=== PATIENT | female | born 1950 | race Caucasian/White ===

== ENCOUNTER 2018-03-01 13:15 | Outpatient (CLI) | payer MEDICARE, OTHER | END 2018-03-01 13:16 | disposition home or self-care (01) | LOC: SC 13:15 | PROVIDERS: ATTEND Internal Medicine Pulmonary Disease | DX: G47.33 Obstructive sleep apnea (adult) (pediatric) (principal) | CPT/HCPCS: 99213; G0463; 99212 ==

== ENCOUNTER 2018-05-03 13:25 | Outpatient (CLI) | payer MEDICARE, OTHER | END 2018-05-03 13:26 | disposition home or self-care (01) | LOC: SC 13:25 | PROVIDERS: ATTEND Internal Medicine Pulmonary Disease | DX: G47.33 Obstructive sleep apnea (adult) (pediatric) (principal) | CPT/HCPCS: 99213; G0463; 99212 ==

== ENCOUNTER 2019-06-06 15:20 | Outpatient (CLI) | payer MEDICARE, OTHER ==
--- NOTE | 2019-06-06 16:32 | SLEEP CARE CONSULTATION ---
Information from patient questionnaire entered by Christie Nixon. I have reviewed and concur with the information entered by Christie Nixon. This document represents the service I personally performed and the decisions made by me, Nubia Garner MD, [facility]. History of Present Illness Previous diagnosis: Severe, Obstructive Sleep Apnea-Hypopnea Syndrome AHI: 48.0 Reason for CPAP/BiPAP follow up: annual Equipment type: CPAP Equipment obtained from: [facility] [employer] Mask style: Full face Mask brand: Resmed and Where: 2015 [facility] HPI additional information: HPI: Ms. Granado returned today for follow up of nasal CPAP therapy. She was diagnosed to have severe obstructive sleep apnea-hypopnea syndrome (AHI was 48.0). The patient wears with a ResMed AirFit F-10 full face mask. She reports using the device nightly and all through the night. She complained of no particular problem with the device such as soreness on the face, dry nose, epistaxis, nasal congestion or headache. She thinks that the pressure is comfortable. On the CPAP therapy she notices improvement in her sleep quality, and that she wakes up feeling fresher in the morning and more awake/alert during the day. The [place] Sleepiness Scale score 9. Her notices no snore at all. The average residual AHI is 6.0; and average time in large leak per day is 1.8 hours. The 90th percentile pressure is 9.6 cmH2O. CPAP Compliance Data - Data Reviewed with Patient Average duration of nightly device use: 6h 9m Compliance rate %: 95 Current pressure setting (cmH2O): 8-15 Humidity settin Heated hose settin Subjective Patient concerns: reports: nasal congestion Initial [place] Sleepiness Scale score: 11 Current [place] Sleepiness Scale score: 9 Impression and Plan IMPRESSION: 1. Obstructive Sleep Apnea-Hypopnea Syndrome, severe, with the patient doing well on nasal CPAP therapy. She has excellent compliance and significant clinical improvement. The current pressure appears effective and comfortable. Overall, she is very satisfied with treatment and plans to continue with it long-term. The elevated residual AHI probably is due to the excessive air leak. I recommend a different full face mask. PLAN: 1. Continue with autoCPAP set at 8 - 15 cmH2O. 2. Try to lose weight 3. Try either a ResMed F30 or Respironics DreamWear full face mask. 4. Return in one year for follow up or earlier if there is any problem with the treatment. This visit is time-based and I spent 15 minutes with the patient and more than 50% of the time was spent counseling the patient.
== END 2019-06-06 15:21 | disposition home or self-care (01) ==
LOC: SC 15:20
PROVIDERS: ATTEND Internal Medicine Pulmonary Disease
DX: G47.33 Obstructive sleep apnea (adult) (pediatric) (principal)
CPT/HCPCS: 99213; G0463; 99212

== ENCOUNTER 2021-01-28 15:19 | Outpatient (CLI) | payer MEDICARE, OTHER ==
--- NOTE | 2021-01-28 15:49 | SLEEP CARE CONSULTATION ---
Information from patient questionnaire entered by Hayden Rojas. I have reviewed and concur with the information entered by Hayden Rojas. This document represents the service I personally performed and the decisions made by me, Nubia Garner MD, [facility]. History of Present Illness Service Date and Time: 01/28/2021 1519 Previous diagnosis: Severe, Obstructive Sleep Apnea-Hypopnea Syndrome AHI: 48.0 (in 2016)(70.5 in 2012) Reason for follow up: other (8-month followup) Equipment type: CPAP Equipment obtained from: [employer] Mask style: Full face Prior sleep studies: Yes Year and Where: 2015 [facility] HPI additional information: HPI: Ms. Granado returned today for follow up of nasal CPAP therapy. She was diagnosed to have severe obstructive sleep apnea-hypopnea syndrome. The patient gets her supplies from [employer]. She wears an F10 full face mask. She continues to use the device nightly and all through the night. The compliance report shows usage in 177 nights out of the past 180 nights, averaging 6 hours a night. She complained of no particular problem with the device such as soreness on the face, dry nose, epistaxis, nasal congestion or headache. She thinks that the pressure of 8 - 15 cmH2O is comfortable. On the CPAP therapy she notices improvement in her sleep quality, and that she wakes up feeling fresher in the morning and more awake/alert during the day. The [place] Sleepiness Scale score 7. The average residual AHI is 5.9 (was 6.8); and large air leak, 4 hours a night. The 90th percentile pressure is 10 cmH2O. CPAP Compliance Data - Data Reviewed with Patient Average duration of nightly device use: 6 h 2 min Compliance rate %: 81.7 Current pressure setting (cmH2O): 10-15 Humidity settin Heated hose settin Average residual AHI: 5.9 Average large leak: 4 h 5 min 54 sec Subjective Patient concerns: reports: aerophagia, nasal congestion (probably not the CPAP) Initial [place] Sleepiness Scale score: 14 (in 2011) Current [place] Sleepiness Scale score: 7 Allergies and Home Medications Drug allergies reviewed: Yes Home medication list reviewed: Yes Review of Systems Review of systems same as previous: Yes Physical Exam Vital signs obtained and entered by: KATELYN Height: 5 ft 1 in Weight: 225 lb Body Mass Index: 42.5 BMI Classification: Morbidly Obese Impression and Plan IMPRESSION: 1. Obstructive Sleep Apnea-Hypopnea Syndrome, severe, with the patient continuing to do well on nasal CPAP therapy. She has excellent compliance and significant clinical improvement. The current pressure appears slightly ineffective but comfortable. Overall, she is very satisfied with treatment and plans to continue with it long-term. Because the air leak is high, I will not raise the pressure. Because the CPAP is now older than the useful life of 5 years, I will order the patient a new one and make it an autoCPAP set between 8 - 15 cmH2O. PLAN: 1. Prescription made for an autoCPAP, heated humidifier, and related supplies. 2. Try to lose weight 3. Return for follow up after one month of using the CPAP. Follow up recommended for: Weight management Visit Type: In Office Time Spent with Patient (minutes): 15 Provider Statement: I spent 100% of the Face to Face Visit with the patient with greater than 50% spent counseling the patient and coordination of care.
== END 2021-01-28 15:20 | disposition home or self-care (01) ==
LOC: SC 15:19
PROVIDERS: ATTEND Internal Medicine Pulmonary Disease
DX: G47.33 Obstructive sleep apnea (adult) (pediatric) (principal); E66.01 Morbid (severe) obesity due to excess calories; Z68.41 Body mass index [BMI] 40.0-44.9, adult
CPT/HCPCS: 99212; G0463

== ENCOUNTER 2021-05-13 14:56 | Outpatient (CLI) | payer MEDICARE, OTHER ==
--- NOTE | 2021-05-13 16:46 | SLEEP CARE CONSULTATION ---
Information from patient questionnaire entered by Ana Rosa Andersen. I have reviewed and concur with the information entered by Ana Rosa Andersen. This document represents the service I personally performed and the decisions made by me, Nubia Garner MD, [facility]. History of Present Illness Service Date and Time: 05/13/2021 1456 Previous diagnosis: Severe, Obstructive Sleep Apnea-Hypopnea Syndrome AHI: 48.0 (in 2016)(70.5 in 2012) Reason for follow up: first compliance after device update Equipment type: CPAP Equipment obtained from: [employer] Mask style: Full face Prior sleep studies: Yes [facility] HPI additional information: HPI: Ms. Granado was called today for follow up of nasal CPAP therapy. She was diagnosed to have severe obstructive sleep apnea-hypopnea syndrome (AHI was 48.0) and recently acquired a new device from [employer]. The patient wears with a ResMed AirFit F-10 full face mask. She reports using the device nightly and all through the night. Compliance report shows usage in 30 out of the past 30 nigh ts, averaging 6.7 hours a night. The > 4 hour compliance rate for the past 180 days is 96.7%. She complained of no particular problem with the device such as soreness on the face, dry nose, epistaxis, nasal congestion or headache. She thinks that the pressure of 8 15 is comfortable. On the CPAP therapy she notices improvement in her sleep quality, and that she wakes up feeling fresher in the morning and more awake/alert during the day. The average residual AHI is 9.1 (was 8.1); and average time in large leak per day is 28 minutes (was 1.8 hours). The 90th percentile pressure is 10 cmH2O. CPAP Compliance Data - Data Reviewed with Patient Average duration of nightly device use: 6 hr 44 min Compliance rate %: 96.7 Current pressure setting (cmH2O): 8-15 Humidity settin Heated hose settin Average residual AHI: 9.1 Average large leak: 26 sec Subjective Initial [place] Sleepiness Scale score: 14 (in 2012) Allergies and Home Medications Drug allergies reviewed: Yes Home medication list reviewed: Yes Review of Systems Review of systems same as previous: Yes Physical Exam Height: 5 ft 1 in Impression and Plan IMPRESSION: 1. Obstructive Sleep Apnea-Hypopnea Syndrome, severe, with the patient doing well on nasal CPAP therapy. She continues to have excellent compliance and significant clinical improvement. The current pressure appears slightly ineffective but comfortable. Overall, she is very satisfied with treatment and plans to continue with it long-term. The elevated residual AHI may be due to her pressing the ramp button several times during the night and each time it takes 45 minutes to climb back up. PLAN: 1. AutoCPAP raised to 10 - 15 cmH2O. 2. Change ramp to 6 cmH2O and shorted the ramp time from 45 to 15 minutes 3. Try to lose weight. 4. Return in one year for follow up or earlier if there is any problem with the treatment. Follow up with Sleep Care in: 1 year Visit Type: Telehealth Video Video Type: VSarcelia Patient Location: Home Location of Provider: Office Patient agrees and consents to this telehealth visit type: Yes Patient agrees to have their insurance billed: Yes Time Spent with Patient (minutes): 15 Provider Statement: I spent 100% of the Telehealth Video Call with the patient with greater than 50% spent counseling the patient and coordination of care.
== END 2021-05-13 14:57 | disposition home or self-care (01) ==
LOC: SC 14:56
PROVIDERS: ATTEND Internal Medicine Pulmonary Disease
DX: G47.33 Obstructive sleep apnea (adult) (pediatric) (principal)

== ENCOUNTER 2022-07-25 15:56 | Outpatient (CLI) | payer MEDICARE, OTHER ==
--- NOTE | 2022-07-25 15:21 | SLEEP CARE CONSULTATION ---
Information from patient questionnaire entered by Uday Lopez. I have reviewed and concur with the information entered by Uday Lopez. This document represents the service I personally performed and the decisions made by , Lucy Squires ARNP. History of Present Illness Service Date and Time: 07/25/2022 1500 Previous diagnosis: Severe, Obstructive Sleep Apnea-Hypopnea Syndrome AHI: 48.0 (in 2016)(70.5 in 2011) Reason for follow up: annual (LAST SEEN 05/15) Equipment type: CPAP (DREAMSTATION) Equipment obtained from: [employer] (getting supplies as needed) Mask style: Full face (F10) Backup mask available: Yes (old mask) Last cushion change: 4 days ago Prior sleep studies: Yes Year and Where: 2015 - [facility] HPI additional information: JAM MANSFIELD was diagnosed to have severe, AHI 48.0, obstructive sleep apnea- hypopnea syndrome and returns via telehealth visit today for CPAP therapy annual follow-up. Sleep Study - Results Prior sleep studies: Yes [facility] Compliance Data - Data Reviewed with Patient Average duration of nightly device use: 6 HOURS, 22 MINUTES, 29 SECONDS Compliance rate %: 95.3 (12/24/21 TO 07/25/22; 211/214 days used) Current pressure setting (cmH2O): 8-15 Average residual AHI: 9.9 Central apnea: 1.3 Obstructive apnea: 5.4 Subjective Patient concerns: denies: aerophagia, mask discomfort, air blowing in eyes, mask leak noise, condensation in mask/hose, nasal congestion, dry mouth, nose, throat, epistaxis Observed to snore while using device: No Current pressure setting perceived as: comfortable On therapy, patient: reports: sleeping better, awakening more refreshed, being more awake and alert during the day, more rested overall. denies: drowsiness while driving Initial [place] Sleepiness Scale score: 14 (in 2011) Current [place] Sleepiness Scale score: 5 (/) Allergies and Home Medications Home medication list reviewed: Yes (2 BP meds) Review of Systems Review of systems same as previous: Yes (no changes) Physical Exam Vital signs obtained and entered by: VIA PHONE Height: 5 ft 1 in Weight: 235 lb (pt report) Body Mass Index: 44.4 BMI Classification: Morbidly Obese Impression and Plan 1. Obstructive Sleep Apnea-Hypopnea Syndrome, severe, with good treatment compliance and fair apnea control with elevated residual AHI. On CPAP therapy, the patient has better sleep quality and is more rested overall. Patient has significant improvement of their sleep apnea and are satisfied with current CPAP therapy. Patient does have an elevated residual AHI at 9.9. The patients pressure will be changed to autoCPAP 12-15 cmH20 for elevation of residual AHI. Patient advised to contact me if pressure change is uncomfortable so that it can be adjusted. Goals for apnea control discussed. Patient's apnea severity and rationale for treatment to reduce apnea, improve sleep quality and reduce cardiovascular and cerebrovascular events was reviewed. 2. Obesity, unspecified. Currently patients BMI is 44.4. Obesity increases the risk of apnea, CPAP pressure requirements and overall health risks especially cardiovascular and diabetes. Thus patient is advised to lose weight. * Change auto CPAP pressure to 12-15 cmH2O * Update supplies * Notify me if snoring with mask or feeling that the pressure is too much or too little * Attempt to lose weight * Call this office if any problems using CPAP * Return for follow up in 1 year, or sooner if concerns arise Counseling Topics: Spare mask, Weight loss health impact Visit Type: Telehealth ) Video Type: Alondra Patient Location: Home Location of Provider: Office Patient agrees and consents to this telehealth visit type: Yes Patient agrees to have their insurance billed: Yes Time Spent with Patient (minutes): 14 Provider Statement: I spent 100% of the Telehealth Phone Call with the patient with greater than 50% spent counseling the patient and coordination of care.
== END 2022-07-25 15:57 | disposition home or self-care (01) ==
LOC: SC 15:56
PROVIDERS: ATTEND Nurse Practitioner Family
DX: G47.33 Obstructive sleep apnea (adult) (pediatric) (principal); E66.01 Morbid (severe) obesity due to excess calories; Z68.41 Body mass index [BMI] 40.0-44.9, adult

== ENCOUNTER 2023-07-28 15:40 | Outpatient (CLI) | payer MEDICARE, OTHER ==
--- NOTE | 2023-07-28 15:13 | SLEEP CARE CONSULTATION ---
Information from patient questionnaire entered by Chichi Le. I have reviewed and concur with the information entered by Chichi Le. This document represents the service I personally performed and the decisions made by , Lucy Squires ARNP. History of Present Illness Service Date and Time: 07/28/2023 1500 Previous diagnosis: Severe, Obstructive Sleep Apnea-Hypopnea Syndrome AHI: 48.0 (in 2016)(70.5 in 2011) Reason for follow up: annual (LAST SEEN 06/2022) Equipment type: CPAP (DREAMSTATION 2) Equipment obtained from: [employer] (getting supplies as needed) Mask style: Full face (F10) Backup mask available: Yes Last cushion change: 1 month [facility] HPI additional information: MARILUZ MANSFIELD was diagnosed to have severe, AHI 48, obstructive sleep apnea- hypopnea syndrome and return via telehealth visit today for CPAP therapy annual follow-up. Sleep Study - Results Prior sleep studies: Yes Year and Where: 2015 - [facility] CPAP Compliance Data - Data Reviewed with Patient Average duration of nightly device use: 6 HRS 11 MINS 48 SECS Compliance rate %: 97.2 (01/24/23-07/22/23; 180/180 days used) Current pressure setting (cmH2O): 12-15 (avg 13.9) Average residual AHI: 11.9 Central apnea: 2.3 Obstructive apnea: 5.5 Hypopnea: 4.1 Average large leak: 1 hour 27 mins 46 secs Subjective Patient concerns: reports: air blowing in eyes (only if mask is dislocated, not often). denies: aerophagia, mask discomfort, mask leak noise, condensation in mask/hose, nasal congestion, dry mouth, nose, throat, epistaxis Observed to snore while using device: No Current pressure setting perceived as: comfortable On therapy, patient: reports: sleeping better, awakening more refreshed, being more awake and alert during the day, more rested overall. denies: drowsiness while driving Initial [place] Sleepiness Scale score: 14 (in 2011) Current [place] Sleepiness Scale score: 1 (07/28/23) Allergies and Home Medications Known drug allergies: No Drug allergies reviewed: Yes Home medication list reviewed: Yes (no changes) Review of Systems Review of systems same as previous: Yes (no changes) Physical Exam Vital signs obtained and entered by: CHICHI [place] MA Blood Pressure: 135/80 (PER PT) Height: 5 ft 1 in (PER PT) Weight: 230 lb (PER PT) Weight change since last visit: 5 lb loss Body Mass Index: 43.4 BMI Classification: Morbidly Obese Impression and Plan 1. Obstructive Sleep Apnea-Hypopnea Syndrome, severe, with good treatment compliance and fair apnea control with elevated residual AHI. On CPAP therapy, the patient has better sleep quality and is more rested overall. Patient has an elevated residual AHI with a large leak average of 1 hour 27 minutes. Her hypopneas are elevated. I think the AHI is falsely elevated. Mariluz has significant improvement of her sleep apnea and would like to keep current pressure settings. No changes will be made today. We will followup with her in 1 year. Goals for apnea control discussed. Patient's apnea severity and rationale for treatment to reduce apnea, improve sleep quality and reduce cardiovascular and cerebrovascular events was reviewed. 2. Obesity, unspecified. Currently patients BMI is 43.4. Obesity increases the risk of apnea, CPAP pressure requirements and overall health risks especially cardiovascular and diabetes. Thus patient is advised to lose weight. * Continue auto CPAP pressure at 12-15 cmH2O * Update supply prescription * Notify me if snoring with mask or feeling that the pressure is too much or too little * Attempt to lose weight * Call this office if any problems using CPAP * Return for follow up in 1 year, or sooner if concerns arise Counseling Topics: Spare mask, Weight loss health impact Prescriptions: Device supplies Follow up with Sleep Care in: 1 year Visit Type: Telehealth Phone Video Type: Alondra Patient Location: Home Location of Provider: Office Patient agrees and consents to this telehealth visit type: Yes Patient agrees to have their insurance billed: Yes Time Spent with Patient (minutes): 14 Provider Statement: I spent 100% of the Telehealth Phone Call with the patient with greater than 50% spent counseling the patient and coordination of care.
[2023-07-28 15:18] VITALS: BP 135/80
== END 2023-07-28 15:41 | disposition home or self-care (01) ==
LOC: SC 15:40
PROVIDERS: ATTEND Nurse Practitioner Family
DX: G47.33 Obstructive sleep apnea (adult) (pediatric) (principal); E66.01 Morbid (severe) obesity due to excess calories; Z68.41 Body mass index [BMI] 40.0-44.9, adult
CPT/HCPCS: 99212; 99213; G0463